=== PATIENT | female | born 1995 | race Two or more races ===

== ENCOUNTER 2017-02-13 16:31 | Emergency (ER) | payer OTHER ==
[~2017-02-13] VITALS: Ht 162.6 cm; Wt 47.6 kg
[2017-02-13] MEDS ORDERED: ADDERALL 20 MG20 MG ORAL (16:57)
[2017-02-13] MEDS ORDERED: LORazepam Inj 2mg/ml 1ml IV ONE (17:00)
--- NOTE | 2017-02-13 17:00 | Emergency Room Report ---
History of Present Illness General Chief Complaint: General Complaint Source: Patient Present Illness HPI 21-year-old female presents to the emergency department complaining of palpitations, increased heart rate, increased anxiety, and SOB with chest tightness and pain s/p taking unknown amount of Adderall at 7 PM last night. Patient states she has not regularly take Adderall however she has several times in the past over 2 years ago. Patient also stated that this was her first time taking a whole tablet of bilateral. Patient denies past medical history denies nausea, vomiting, fevers, chills. She denies reaction like this in the past. Patient denies history of anxiety. Denies other substance use. Denies personal or familial cardiac or thyroid hx. denies birthcontrol use, recent travel, recent surgery, or hx of asthma/smoking/COPD. Denies LOC, AMS, dizziness, Changes in Vision, Sensation, paresthesias, or a sudden severe headache. Allergies: Coded Allergies: KETOROLAC (Verified Allergy, Mild, 02/13/17) facial swelling ONDANSETRON (Verified Allergy, Unknown, 02/13/17) FACIAK SWELLING Patient History Past Medical History: see triage record Past Surgical History: none Pertinent Family History: none Last Menstrual Period: 02/10/17 Now: No : 0 Para: 0 Reviewed Nursing Documentation: PMH: Agreed, PSxH: Agreed Nursing Documentation-PMH Past Medical History: No Stated History Review of Systems All Other Systems: negative except mentioned in HPI Physical Exam Vital Signs Date Time Temp Pulse Resp B/P Pulse Ox O2 Delivery O2 Flow Rate FiO2 02/13/17 16:38 98.1 160 18 94/65 99 Room Air Sp02 EP Interpretation: reviewed, normal General Appearance: no apparent distress, alert, GCS 15, non-toxic Head: normocephalic, atraumatic Eyes: bilateral eye PERRL, bilateral eye normal inspection ENT: hearing grossly normal, normal pharynx, no angioedema, normal voice Neck: full range of motion, supple/symm/no masses Respiratory: chest non-tender, lungs clear, normal breath sounds, speaking full sentences Cardiovascular #1: regular rate, rhythm, no edema, tachycardia Gastrointestinal: normal bowel sounds, non tender, soft, no guarding, no rebound Rectal: deferred Genitourinary: normal inspection, no CVA tenderness Musculoskeletal: back normal, gait/station normal, normal range of motion, non- tender, no calf tenderness Neurologic: alert, oriented x3, responsive, motor strength/tone normal, sensory intact, speech normal Psychiatric: judgement/insight normal, memory normal, mood/affect normal, anxious Skin: normal color, no rash, warm/dry, well hydrated Medical Decision Making JACK Attestation Dr. Hanson is my supervising Physician whom patient management has been discussed with. Diagnostic Impression: Primary Impression: Tachycardia Additional Impressions: Anxiety reaction Methamphetamine use ER Course 21-year-old female presents to the emergency department complaining of palpitations, increased heart rate, increased anxiety, and SOB with chest tightness and pain s/p taking unknown amount of Adderall at 7 PM last night. Patient states she has not regularly take Adderall however she has several times in the past over 2 years ago. Patient also stated that this was her first time taking a whole tablet of bilateral. Patient denies past medical history denies nausea, vomiting, fevers, chills. She denies reaction like this in the past. Patient denies history of anxiety. Denies other substance use. Denies personal or familial cardiac or thyroid hx. denies birthcontrol use, recent travel, recent surgery, or hx of asthma/smoking/COPD. Denies LOC, AMS, dizziness, Changes in Vision, Sensation, paresthesias, or a sudden severe headache. Ddx considered but are not limited to CA, arrhythmia, hypokalemia, anxiety reaction, Medication SE, substance use/abuse. Vital signs: are WNL, pt. is afebrile H&PE are most consistent with Substance abuse, pt .used medication not rx'd to her. will also r/o cardiac arrhythmia/pathology as in triage pt. hr is 160 , and during PE noted to be tachycardic as well. ORDERS: - EKG: - EK BPM NSR - no acute ST changes reviewed by Dr. Hanson , this interpretation was scribed by JACK Paredes -CBC : elevated wbc's 14 most likely stress reaction elevation, otherwise unremarkable. - BMP unremarkable - UA: occult blood and rbc's with epithelial cells- contamination and. pt. just finishing her menstrual cycle 2 days ago. -Urine Hcg : negative -Troponins: less than .3 WNL - CK-MG : WNL -Total CK: unremarkable/WNL ED INTERVENTIONS: - 1mg. Ativan IV -1000cc NS bolus PT EDUCATION: d/c use of medications not rx'd to her, d/w pt. and responsible alliance party ( mother) to return to ED with worsening or new symptoms, otherwise pt. is stable for close outpatient follow up. DISCHARGE: At this time pt. is stable for d/c to home. Will provide printed patient care instructions, and any necessary prescriptions. Care plan and follow up instructions have been discussed with the patient prior to discharge. Labs Test 02/13/17 16:50 02/13/17 17:15 Urine Color Pale yellow Urine Appearance Slightly cloudy Urine pH 6.5 (4.5-8.0) Urine Specific Brandt 1.010 (1.005-1.035) Urine Protein Negative (NEGATIVE) Urine Glucose (UA) Negative (NEGATIVE) Urine Ketones 1+ (NEGATIVE) Urine Occult Blood 5+ (NEGATIVE) Urine Nitrite Negative (NEGATIVE) Urine Bilirubin Negative (NEGATIVE) Urine Urobilinogen Normal MG/DL (0.0-1.0) Urine Leukocyte Esterase 1+ (NEGATIVE) Urine RBC 10-15 /HPF (0 - 2) Urine WBC 2-4 /HPF (0 - 2) Urine Squamous Epithelial Cells Many /LPF (NONE/OCC) Urine Bacteria Few /HPF (NONE) Urine HCG, Qualitative Negative Urine Opiates Screen Negative (NEGATIVE) Urine Barbiturates Screen Negative (NEGATIVE) Phencyclidine (PCP) Screen Negative (NEGATIVE) Urine Amphetamines Screen Positive (NEGATIVE) Urine Benzodiazepines Screen Negative (NEGATIVE) Urine Cocaine Screen Negative (NEGATIVE) Urine Marijuana (THC) Screen Negative (NEGATIVE) White Blood Count 14.0 K/UL (4.8-10.8) Red Blood Count 4.90 M/UL (4.20-5.40) Hemoglobin 15.3 G/DL (12.0-16.0) Hematocrit 42.8 % (37.0-47.0) Mean Corpuscular Volume 87 FL (80-99) Mean Corpuscular Hemoglobin 31.2 PG (27.0-31.0) Mean Corpuscular Hemoglobin Concent 35.7 G/DL (32.0-36.0) Red Cell Distribution Width 11.7 % (11.6-14.8) Platelet Count 260 K/UL (150-450) Mean Platelet Volume 8.5 FL (6.5-10.1) Neutrophils (%) (Auto) 77.0 % (45.0-75.0) Lymphocytes (%) (Auto) 15.9 % (20.0-45.0) Monocytes (%) (Auto) 6.4 % (1.0-10.0) Eosinophils (%) (Auto) 0.1 % (0.0-3.0) Basophils (%) (Auto) 0.7 % (0.0-2.0) Sodium Level 136 mEQ/L (135-145) Potassium Level 3.6 mEQ/L (3.4-4.9) Chloride Level 96 mEQ/L (98-107) Carbon Dioxide Level 25 mEQ/L (20-30) Anion Gap 15 (5-15) Blood Urea Nitrogen 15 mg/dL (7-23) Creatinine 1.0 mg/dL (0.5-0.9) Estimat Glomerular Filtration Rate > 60 mL/min (>60) Glucose Level 109 mg/dL (74-106) Calcium Level 9.9 mg/dL (8.6-10.2) Total Bilirubin 1.0 mg/dL (0.0-1.2) Aspartate Amino Transf (AST/SGOT) 18 U/L (5-40) Alanine Aminotransferase (ALT/SGPT) 15 U/L (3-33) Alkaline Phosphatase 52 U/L (35-104) Total Creatine Kinase 97 U/L (26-140) Creatine Kinase MB 2.1 ng/mL (< 3.8) Creatine Kinase MB Relative Index 2.1 Troponin I < 0.30 ng/mL (<=0.30) Total Protein 7.6 g/dL (6.6-8.7) Albumin 4.7 g/dL (3.5-5.2) Globulin 2.9 g/dL Albumin/Globulin Ratio 1.6 (1.0-2.7) EKG Diagnostic Results Rate: normal - 66 BPM Rhythm: NSR ST Segments: no acute changes ASA given to the pt in ED: No PA Scribe Text - EK BPM NSR - no acute ST changes reviewed by Dr. Hanson, this interpretation was scribed by JACK Paredes Last Vital Signs Date Time Temp Pulse Resp B/P Pulse Ox O2 Delivery O2 Flow Rate FiO2 02/13/17 16:38 98.1 160 18 94/65 99 Room Air Disposition: HOME, SELF-CARE Condition: Stable Referrals: NON PHYSICIAN (PCP) Patient Instructions: Medical Screening Exam, Panic Attacks, [id number] Additional Instructions: Take medications as directed. - Discontinue use of medications that are not prescribed to you such as Adderall. Follow up with a Primary Care Provider in 3-5 days, even if your symptoms have resolved. --Please review list of primary care clinics, if you do not already have a primary care provider Return sooner to ED if new symptoms occur, or current symptoms become worse. - Please note that this Emergency Department Report was dictated using [employer] sander technology software, occasionally this can lead to erroneous entry secondary to interpretation by the dictation equipment. Danielle Paredes Feb 13, 2017 17:00
[2017-02-13 17:33] LABS: BASOPHILS % (AUTO) 0.7 % (0.0-2.0); EOSINOPHILS % (AUTO) 0.1 % (0.0-3.0); LYMPHOCYTES % (AUTO) 15.9 % (20.0-45.0); MEAN CORPUSCULAR HEMOGLOBIN 31.2 PG (27.0-31.0); MEAN CORPUSCULAR HGB CONC 35.7 G/DL (32.0-36.0); MEAN CORPUSCULAR VOLUME 87 FL (80-99); MEAN PLATELET VOLUME 8.5 FL (6.5-10.1); MONOCYTES % (AUTO) 6.4 % (1.0-10.0); PLATELET COUNT 260 K/UL (150-450); RED CELL DISTRIBUTION WIDTH 11.7 % (11.6-14.8)
[2017-02-13 17:51] LABS: ALANINE AMINOTRANSFERASE 15 U/L (3-33); ALBUMIN/GLOBULIN RATIO 1.6 (1.0-2.7); ANION GAP 15 (5-15); ASPARTATE AMINO TRANSFERASE 18 U/L (5-40); CALCIUM 9.9 mg/dL (8.6-10.2); CARBON DIOXIDE 25 mEQ/L (20-30); CHLORIDE 96 mEQ/L (98-107); GLOMERULAR FILTRATION RATE > 60 mL/min (>60); HEMOLYSIS 5; POTASSIUM 3.6 mEQ/L (3.4-4.9); SODIUM 136 mEQ/L (135-145); TOTAL PROTEIN 7.6 g/dL (6.6-8.7); TROPONIN I < 0.30 ng/mL (<=0.30)
[2017-02-13 18:01] LABS: CKMB 2.1 ng/mL (< 3.8)
[2017-02-13 18:21] LABS: APPEARANCE,URINE SLIGHTLY CLOUDY; KETONES,URINE 1+ (NEGATIVE); LEUKOCYTE ESTERASE ,URINE 1+ (NEGATIVE); NITRITE,URINE NEGATIVE (NEGATIVE); PH,URINE 6.5 (4.5-8.0); PROTEIN,URINE NEGATIVE (NEGATIVE); UROBILINOGEN,URINE NORMAL MG/DL (0.0-1.0)
[2017-02-13 18:29] LABS: BACTERIA,URINE FEW /HPF; SQUAMOUS EPITHELIAL CELL,UR MANY /LPF (NONE/OCC)
[2017-02-13 18:43] VITALS: BP 125/84
[2017-02-14] MEDS ORDERED: ATIVAN1 MG ORAL (18:59)
--- NOTE | 2017-02-16 16:25 | Cardiology Report ---
APPROVED REPORT EKG Measurement Heart [id number] Normal sinus rhythm Normal ECG
== END 2017-02-13 18:48 | disposition home or self-care (01) ==
LOC: EMR 16:55
DX: R00.0 Tachycardia, unspecified (principal); F41.9 Anxiety disorder, unspecified; F15.10 Other stimulant abuse, uncomplicated; Z88.8 Allergy status to other drugs, medicaments and biological substances; R07.89 Other chest pain; Z79.899 Other long term (current) drug therapy
CPT/HCPCS: 36415; 80053; 80300; 81003; 81025; 82550; 82553; 84484; 85025; 93005; 96360; 96361; 96374

== ENCOUNTER 2017-02-14 17:33 | Emergency (ER) | payer OTHER ==
[~2017-02-14] VITALS: Ht 162.6 cm; Wt 45.4 kg
[~2017-02-14 17:33] MED LIST: ADDERALL 20 MG20 MG ORAL
[2017-02-14] MEDS ORDERED: LORazepam 1mg tab ORAL ONE (17:45)
[2017-02-14] MEDS ORDERED: Mylanta II UD 30ml ORAL ONE (18:45)
[2017-02-14] MEDS ORDERED: Lidocaine 2% Visc 15ml soln ORAL ONE (18:45)
[2017-02-14] MEDS ORDERED: Dicyclomine HCl 10mg/5ml oral soln ORAL ONE (18:45)
[2017-02-14] MEDS ORDERED: ATIVAN1 MG ORAL (18:59)
[2017-02-14 19:16] VITALS: BP 109/78
--- NOTE | 2017-02-14 21:01 | Emergency Room Report ---
History of Present Illness General Chief Complaint: Substance Abuse Source: Patient Present Illness HPI The patient is a 21-year-old female accompanied by mother presenting for a feeling of anxiety. The patient was seen in this emergency Department yesterday for the same complaint. She states that she took Adderall which was not her own prescription before the symptoms began. She denies taking this medication after being seen yesterday and denies using any drugs. The mother the patient states the patient has been experiencing visual hallucinations since taking Adderall. She denies any previous psychiatric history for the patient. Has been difficult for the patient to sleep after using Adderall. She denies other symptoms including nausea, vomiting, fever, chills Allergies: Coded Allergies: KETOROLAC (Verified Allergy, Mild, 02/13/17) facial swelling ONDANSETRON (Verified Allergy, Unknown, 02/13/17) FACIAK SWELLING Patient History Past Medical History: see triage record Pertinent Family History: none Last Menstrual Period: 4 days Now: No Reviewed Nursing Documentation: PMH: Agreed, PSxH: Agreed Nursing Documentation-PMH Past Medical History: No History, Except For History Of Psychiatric Problem: Yes - anxiety Review of Systems All Other Systems: negative except mentioned in HPI Physical Exam Vital Signs Date Time Temp Pulse Resp B/P Pulse Ox O2 Delivery O2 Flow Rate FiO2 02/14/17 17:34 98.1 109 24 109/78 99 Room Air Sp02 EP Interpretation: reviewed, normal General Appearance: no apparent distress, alert, GCS 15, non-toxic Head: normocephalic, atraumatic Eyes: bilateral eye PERRL, bilateral eye normal inspection ENT: hearing grossly normal, normal pharynx, no angioedema, normal voice Neck: full range of motion, supple/symm/no masses Respiratory: chest non-tender, lungs clear, normal breath sounds, speaking full sentences Cardiovascular #1: tachycardia Gastrointestinal: normal bowel sounds, non tender, soft, non-distended, no guarding, no rebound Musculoskeletal: back normal, gait/station normal, normal range of motion, non- tender Neurologic: alert, oriented x3, responsive, motor strength/tone normal, sensory intact, speech normal Psychiatric: memory normal, anxious Skin: normal color, no rash, warm/dry, well hydrated Medical Decision Making PA Attestation Dr. Stevens is my supervising physician. Patient management was discussed with my supervising physician Diagnostic Impression: Primary Impression: Anxiety Additional Impression: Methamphetamine use ER Course The patient is a 21-year-old female accompanied by mother presenting for a feeling of anxiety. Differential diagnoses considered but not limited to: Anxiety disorder, drug use , psychosis, among others Physical exam: There is tachycardia. Patient does appear anxious Otherwise exam is unremarkable No lab work is done today do to patient having extensive workup yesterday for same symptoms. EKG shows sinus tachycardia Upon reexamination, the patient describes mid-upper abdominal pain with radiating pain to the mid chest. The patient is given Ativan and GI cocktail and feels better. She'll discharged home with a limited prescription for Ativan and needs to followup with psychiatry and primary doctor. The patient will stop using Adderall ER precautions are given Last Vital Signs Date Time Temp Pulse Resp B/P Pulse Ox O2 Delivery O2 Flow Rate FiO2 02/14/17 19:16 98.1 24 109/78 99 Room Air 02/14/17 17:34 109 Status: improved Disposition: HOME, SELF-CARE Condition: Improved Scripts Lorazepam* (ATIVAN*) 1 Mg Tablet 1 MG ORAL THREE TIMES A DAY, #10 TAB Prov: BOGDAN GRANDA 02/14/17 Patient Instructions: Panic Attacks, Stimulant Use Disorder-Methamphetamines Additional Instructions: I discussed my findings with the patient. All questions and concerns have been answered. Treatment and medication compliance have been addressed. I advised the patient that they need to follow up with PMD in 3-5 days. Return to ED if symptoms worsen, new symptoms arise, or if needed for any reason. Patient verbalized understanding of discharge instructions. Please follow up with psychiatrist if symptoms continue BOGDAN GRANDA Feb 14, 2017 21:01
--- NOTE | 2017-02-16 16:21 | Cardiology Report ---
APPROVED REPORT EKG Measurement Heart [id number] Sinus tachycardia Possible Left atrial enlargement Septal infarct, age undetermined Abnormal ECG
== END 2017-02-14 19:16 | disposition home or self-care (01) ==
LOC: EMR 18:09
DX: F41.9 Anxiety disorder, unspecified (principal); F15.90 Other stimulant use, unspecified, uncomplicated; Z88.8 Allergy status to other drugs, medicaments and biological substances
CPT/HCPCS: 93005; 99283

== ENCOUNTER 2019-07-18 19:49 | Emergency (ER) | payer MEDICAID, OTHER ==
[~2019-07-18] VITALS: Ht 160 cm; Wt 44.5 kg
[~2019-07-18 19:49] MED LIST changes: +ATIVAN1 MG ORAL
[2019-07-18 20:35] VITALS: BP 109/75
--- NOTE | 2019-07-18 20:35 | NUR ---
ED Nurse Note: Pt walked into ED from home for c/o flu like symptoms onset two days ago. Pt reports headache, nausea, cough with sore throat, ear pain and nausea. Pt is aaox4, no respiratory or cardiac distress noted. Will continue to monitor.
[2019-07-18] MEDS ORDERED: NEXAFED30 MG ORAL (21:27)
[2019-07-18] MEDS ORDERED: REGLAN5 MG ORAL (21:28)
--- NOTE | 2019-07-18 21:28 | Emergency Room Report ---
History of Present Illness General Chief Complaint: Upper Respiratory Illness Source: Patient Present Illness HPI 23-year-old female presents with cough, congestion no aggravating relieving factors severity is moderate, constant, patient versus some subjective fever/ chills, patient has been taking DayQuil NyQuil without relief patient presents for evaluation. Is fullness of the right ear and wants her right ear check. Allergies: Coded Allergies: KETOROLAC (Verified Allergy, Mild, 02/13/17) facial swelling ONDANSETRON (Verified Allergy, Unknown, 02/13/17) FACIAK SWELLING Patient History Past Medical History: see triage record Last Menstrual Period: 06/20/19 Reviewed Nursing Documentation: PMH: Agreed; PSxH: Agreed Nursing Documentation-PMH Past Medical History: No Stated History Review of Systems All Other Systems: negative except mentioned in HPI Physical Exam Vital Signs Date Time Temp Pulse Resp B/P (MAP) Pulse Ox O2 Delivery O2 Flow Rate FiO2 07/18/19 20:33 99.0 99 14 109/75 (86) 98 Room Air Sp02 EP Interpretation: reviewed, normal General Appearance: well appearing, no apparent distress, alert Head: normocephalic, atraumatic Eyes: bilateral eye PERRL, bilateral eye EOMI ENT: TMs + canals normal - Right ear was impacted with wax which was removed, TMs clear, uvula midline, moist mucus membranes, nasal congestion Neck: supple, thyroid normal, supple/symm/no masses Respiratory: lungs clear, no respiratory distress, no retraction, no accessory muscle use Cardiovascular #1: normal peripheral pulses, regular rate, rhythm, no edema, no gallop, no murmur Gastrointestinal: non tender, soft, no guarding, no rebound Musculoskeletal: normal inspection Neurologic: alert, oriented x3 Psychiatric: mood/affect normal Skin: no rash, warm/dry Medical Decision Making Diagnostic Impression: Primary Impression: Upper respiratory infection Qualified Codes: J06.9 - Acute upper respiratory infection, unspecified ER Course 23-year-old female presents with upper respiratory infection differential diagnosis includes pneumonia, influenza, supportive care Patient did not want Tamiflu because it may cause her to have nausea and vomiting and there was little to no benefit patient has a sensitive stomach Disposition home with return precautions Last Vital Signs Date Time Temp Pulse Resp B/P (MAP) Pulse Ox O2 Delivery O2 Flow Rate FiO2 07/18/19 20:35 99 14 Room Air 07/18/19 20:35 99.0 109/75 98 Disposition: HOME, SELF-CARE Condition: Stable Scripts Metoclopramide Hcl* (REGLAN*) 5 Mg Tablet 5 MG ORAL EVERY 6 HOURS PRN for Nausea & Vomiting, #15 TAB Prov: Barrett Padron MD 07/18/19 Pseudoephedrine Hcl* (NEXAFED*) 30 Mg Tablet 30 MG ORAL Q6H PRN for congestion, #30 TAB Prov: Barrett Padron MD 07/18/19 Referrals: [facility],REFERRING (PCP) [facility] Patient Instructions: Upper Respiratory Infection, Adult Additional Instructions: The patient was provided with discharge instructions, notified to follow-up with a primary care doctor and or specialist in the next 24-48 hours, and to return to the ED if they have worsening of their symptoms. Please note that this report is being documented using DR[employer] technology. This can lead to erroneous entry secondary to incorrect interpretation by the dictating instrument. Barrett Padron MD Jul 18, 2019 21:28
[2019-07-18 22:05] VITALS: BP 110/70
--- NOTE | 2019-07-18 22:05 | NUR ---
ER DISCHARGE NOTE: Patient is cleared to be discharged per ERMD, pt is aox4, on room air, with stable vital signs. pt was given dc and prescription instructions, pt was able to verbalize understanding, pt id band removed. pt is able to ambulate with steady gait. pt took all belongings.
== END 2019-07-18 22:05 | disposition home or self-care (01) ==
LOC: EMR 20:41
DX: J06.9 Acute upper respiratory infection, unspecified (principal); Z88.8 Allergy status to other drugs, medicaments and biological substances
CPT/HCPCS: 81025; J8540; Z7502; 99283